=== PATIENT | female | born 1975 | race Two or more races ===

== ENCOUNTER 2023-05-10 11:30 | Inpatient (IN) | payer MEDICAID ==
[~2023-05-10] VITALS: Ht 152.4 cm; Wt 93.4 kg
[2023-05-10] MEDS ORDERED: MORPHINE SULFATE INJ 2 MG/ML DISP.SYRIN IV ONE (12:00)
[2023-05-10] MEDS ORDERED: KETOROLAC TROMETHAMINE INJ 30 MG/ML VIAL IV ONE (12:00)
[2023-05-10] MEDS ORDERED: KETOROLAC TROMETHAMINE 15 MG/ML VIAL ONE (12:36)
[2023-05-10] MEDS ORDERED: MORPHINE SULFATE INJ 4 MG/ML DISP.SYRIN ONE ×2 (12:36→23:21)
[2023-05-10] MEDS ORDERED: ONDANSETRON HCL/PF 4 MG/2 ML VIAL ONE (12:41)
[2023-05-10] MEDS ORDERED: ONDANSETRON HCL/PF - ER 4 MG/2 ML VIAL IV ONE (13:00)
[2023-05-10] MEDS ORDERED: HYDROMORPHONE 1 MG/1 ML DISP.SYRIN IV ONE (13:00)
[2023-05-10] MEDS ORDERED: PROPOFOL 0 ML ONE (13:29)
[2023-05-10] MEDS ORDERED: PROPOFOL 200 MG/20 ML VIAL IV ONE ×3 (13:30→14:00)
[2023-05-10] MEDS ORDERED: PROPOFOL 20 ML IV ONE (13:34)
[2023-05-10 13:35] LABS: BASOPHILS % (AUTO) 0.2 % (0.0-2.0); EOSINOPHILS % (AUTO) 0.1 % (0.0-6.0); HEMATOCRIT 36 % (33-45); LYMPHOCYTES # (AUTO) 0.8 K/uL (0.8-4.8); LYMPHOCYTES % (AUTO) 6.2 % (20.0-44.0); MEAN CORPUSCULAR HEMOGLOBIN 30 PG (26.0-33.0); MEAN CORPUSCULAR HGB CONC 33 g/dl (31.0-36.0); MEAN CORPUSCULAR VOLUME 90 fL (82-100); MONOCYTES # (AUTO) 0.6 K/uL (0.1-1.30); MONOCYTES % (AUTO) 4.3 % (2.0-12.0); NEUTROPHILS % (AUTO) 89.2 % (43.0-81.0); PLATELET COUNT (AUTO) 282 K/uL (150-450); RED BLOOD CELL COUNT(AUTO) 4.02 MIL/uL (4.0-5.2); RED CELL DISTRIBUTION WIDTH 13.2 % (11.5-15.0); WHITE BLOOD COUNT (AUTO) 13.4 K/uL (4.3-11.0)
[2023-05-10 13:52] LABS: CALCIUM, SERUM 8.5 mg/dL (8.5-10.1); CREATININE 0.8 mg/dL (0.6-1.3); POTASSIUM 3.4 mmol/L (3.5-5.1)
[2023-05-10] MEDS ORDERED: IOHEXOL-350 100 ML VIAL IV ONE (14:36)
[2023-05-10] MEDS ORDERED: IV NS 0.9% 250 ML IV ONE (14:36)
[2023-05-10] MEDS ORDERED: TRAM50TA2 PO (15:38)
[2023-05-10] MEDS ORDERED: IBUP-1957 PO (15:38)
[2023-05-10] MEDS ORDERED: HEPARIN INFUSION/D5W 500 ML IV ONE ×2 (17:30→17:47)
[2023-05-10 17:45] LABS: INR 1.02 (0.91-1.10); PARTIAL THROMBOPLASTIN TIME 25.4 SEC (24.3-34.3); PROTHROMBIN TIME 10.8 SECS (9.2-11.1)
[2023-05-10] MEDS ORDERED: BUPIVACAINE 0.5 % PF 150 MG/30 ML VIAL ONE (18:24)
[2023-05-10] MEDS ORDERED: ANESTHESIA TRAY IN PYXIS 1 EA TRAY MC ONE (18:24)
[2023-05-10] MEDS ORDERED: LIDOCAINE 1% INJ 50 ML MDV IJ ONE (18:24)
[2023-05-10] MEDS ORDERED: BUPIVACAINE 0.25% 75 MG/30 ML VIAL ONE (18:24)
[2023-05-10] MEDS ORDERED: HEMOSTATIC MATRIX 8 ML 1 EACH PAD MC ONE (18:24)
[2023-05-10] MEDS ORDERED: CELLULOSE,OXIDIZED 1 EACH EACH MC ONE (18:25)
[2023-05-10] MEDS ORDERED: LIDOCAINE 1%-EPI 1:100,000 20 ML VIAL ONE (18:25)
[2023-05-10] MEDS ORDERED: CELLULOSE,OXIDIZED 1 EA PACK MC ONE (18:25)
[2023-05-10] MEDS ORDERED: LABETALOL HCL IV 100MG VIAL ONE (18:56)
[2023-05-10] MEDS ORDERED: ROCURONIUM BROMIDE 50 MG/5 ML ONE (18:56)
[2023-05-10] MEDS ORDERED: FENTANYL PF 250MCG/5ML AMPUL ONE (18:56)
[2023-05-10] MEDS ORDERED: POLYMYXIN B SULFATE 500,000 UNITS ONE (20:21)
[2023-05-10] MEDS ORDERED: VANCOMYCIN 1 GM VIAL ONE (20:21)
[2023-05-10] MEDS ORDERED: HEPARIN SODIUM, PORCINE 1,000 UNIT/ML VIAL ONE (20:52)
[2023-05-10] MEDS ORDERED: HEPARIN SODIUM, PORCINE 5000 UNITS/1 ML VIAL ONE ×2 (20:52)
[2023-05-10] MEDS ORDERED: HYDROMORPHONE INJ 2 MG/ML DISP.SYRIN ONE (22:20)
[2023-05-10] MEDS ORDERED: HYDROMORPHONE 1 MG/1 ML DISP.SYRIN ONE (22:32)
[2023-05-10] MEDS ORDERED: MEPERIDINE25 MG SYR 25 MG/ML VIAL ONE (22:38)
[2023-05-10 23:24] VITALS: BP 120/79; TEMP 97.7; O2SAT 99
[2023-05-10] MEDS ORDERED: MORPHINE SULFATE INJ 2 MG/ML DISP.SYRIN ONE (23:36)
[2023-05-10] MEDS: FAMOTIDINE/PF INJ 20 MG/2 ML VIAL IV SCH (23:44)
[2023-05-10] MEDS ORDERED: ONDANSETRON HCL/PF 4 MG/2 ML VIAL IVP PRN (23:45)
[2023-05-10] MEDS ORDERED: PHENOL PO PRN (23:45)
[2023-05-10] MEDS ORDERED: MENTHOL PO PRN (23:45)
[2023-05-10] MEDS: IV NS 0.9% 1,000 ML IV PRN (23:46)
[2023-05-10] MEDS: MORPHINE SULFATE/PF 30 MG in IV NS 0.9% 27 ML, PCA TOTAL VOLUME 1 BAG IV PRN ×3 (23:49)
[2023-05-10 23:52] LABS: CALCIUM, SERUM 7.8 mg/dL (8.5-10.1); CREATININE 0.9 mg/dL (0.6-1.3); POTASSIUM 3.6 mmol/L (3.5-5.1)
[2023-05-10 23:54] LABS: BASOPHILS % (AUTO) 0.6 % (0.0-2.0); EOSINOPHILS % (AUTO) 0.1 % (0.0-6.0); HEMATOCRIT 36 % (33-45); LYMPHOCYTES # (AUTO) 0.6 K/uL (0.8-4.8); LYMPHOCYTES % (AUTO) 7.7 % (20.0-44.0); MEAN CORPUSCULAR HEMOGLOBIN 30 PG (26.0-33.0); MEAN CORPUSCULAR HGB CONC 33 g/dl (31.0-36.0); MEAN CORPUSCULAR VOLUME 90 fL (82-100); MONOCYTES # (AUTO) 0.3 K/uL (0.1-1.30); MONOCYTES % (AUTO) 3.3 % (2.0-12.0); NEUTROPHILS # (AUTO) 7.1 K/uL (1.8-8.9); NEUTROPHILS % (AUTO) 88.3 % (43.0-81.0); PLATELET COUNT (AUTO) 253 K/uL (150-450); RED BLOOD CELL COUNT(AUTO) 3.98 MIL/uL (4.0-5.2); RED CELL DISTRIBUTION WIDTH 13.3 % (11.5-15.0)
[2023-05-11] VITALS (12 sets, daily range): BP systolic 100–116; BP diastolic 54–75; TEMP 98–99.9; O2SAT 99–100
[2023-05-11 05:08] LABS: HEMATOCRIT 32 % (33-45); HEMOGLOBIN 10.9 g/dL (11.5-14.8); LYMPHOCYTES # (AUTO) 0.5 K/uL (0.8-4.8); LYMPHOCYTES % (AUTO) 6.1 % (20.0-44.0); MEAN CORPUSCULAR HEMOGLOBIN 31 PG (26.0-33.0); MEAN CORPUSCULAR HGB CONC 34 g/dl (31.0-36.0); MEAN CORPUSCULAR VOLUME 90 fL (82-100); MONOCYTES # (AUTO) 0.5 K/uL (0.1-1.30); MONOCYTES % (AUTO) 6.3 % (2.0-12.0); NEUTROPHILS # (AUTO) 6.8 K/uL (1.8-8.9); NEUTROPHILS % (AUTO) 87.6 % (43.0-81.0); PLATELET COUNT (AUTO) 219 K/uL (150-450); RED BLOOD CELL COUNT(AUTO) 3.54 MIL/uL (4.0-5.2); WHITE BLOOD COUNT (AUTO) 7.8 K/uL (4.3-11.0)
[2023-05-11] MEDS ORDERED: CEFAZOLIN 1 GM ONE (05:19)
[2023-05-11 05:21] LABS: CALCIUM, SERUM 7.8 mg/dL (8.5-10.1); CREATININE 0.7 mg/dL (0.6-1.3); MAGNESIUM 1.9 mg/dL (1.8-2.4); PHOSPHORUS 3.3 mg/dL (2.5-4.9); POTASSIUM 3.6 mmol/L (3.5-5.1)
[2023-05-11] MEDS: ANCEF 1 GM/50 ML D5W IV SCH ×6 (05:29→20:50)
[2023-05-11] MEDS ORDERED: MENTHOL/CETYLPYRD (CEPACOL) 1 LOZ LOZENGE PO PRN (08:00)
[2023-05-11] MEDS: FAMOTIDINE/PF INJ 20 MG/2 ML VIAL IV SCH (09:06)
[2023-05-11] MEDS: ASPIRIN 81 MG TAB.CHEW PO SCH (09:06)
[2023-05-11] MEDS: DOCUSATE SODIUM 100 MG CAPSULE PO SCH ×2 (09:06→17:34)
[2023-05-11] MEDS: MULTIVITAMINS,THERAGRAN 1 UDTAB TABLET PO SCH (09:07)
[2023-05-11] MEDS: ASCORBIC ACID 500 MG TABLET PO SCH ×3 (09:07→17:34)
[2023-05-11] MEDS: ENOXAPARIN SODIUM 40 MG/0.4 ML DISP.SYRIN SQ SCH (09:08)
[2023-05-11] MEDS: IV NS 0.9% 1,000 ML IV PRN (12:54)
[2023-05-11] MEDS: FAMOTIDINE (20 MG) 20 MG TABLET PO SCH (20:46)
[2023-05-11] MEDS ORDERED: KEY,NONCONTROL,TO KEEP IN PYXI 1 EA MC ONE (21:39)
[2023-05-11] MEDS: MORPHINE SULFATE/PF 30 MG in IV NS 0.9% 27 ML, PCA TOTAL VOLUME 1 BAG IV PRN ×3 (21:48)
[2023-05-12] VITALS: BP 117/53; TEMP 99.5; O2SAT 96
[2023-05-12] MEDS: IV NS 0.9% 1,000 ML IV PRN ×3 (03:22→22:34)
[2023-05-12 04:00] VITALS: BP 114/68; TEMP 99.1; O2SAT 99
[2023-05-12 08:00] VITALS: BP 85/50; TEMP 97.6; O2SAT 99
[2023-05-12] MEDS: FAMOTIDINE (20 MG) 20 MG TABLET PO SCH ×2 (08:07→20:26)
[2023-05-12] MEDS: ASPIRIN 81 MG TAB.CHEW PO SCH (08:07)
[2023-05-12] MEDS: ASCORBIC ACID 500 MG TABLET PO SCH ×3 (08:08→16:10)
[2023-05-12] MEDS: MULTIVITAMINS,THERAGRAN 1 UDTAB TABLET PO SCH (08:08)
[2023-05-12] MEDS: DOCUSATE SODIUM 100 MG CAPSULE PO SCH ×2 (08:08→16:10)
[2023-05-12] MEDS: ENOXAPARIN SODIUM 40 MG/0.4 ML DISP.SYRIN SQ SCH (08:11)
[2023-05-12 12:00] VITALS: BP 87/55; TEMP 97.8; O2SAT 99
[2023-05-12 16:03] VITALS: BP 115/62; TEMP 97.9; O2SAT 99
[2023-05-12 20:00] VITALS: BP 106/61; TEMP 99; O2SAT 99
[2023-05-12] MEDS ORDERED: KEY,NONCONTROL,TO KEEP IN PYXI 1 EA MC ONE (21:31)
[2023-05-12] MEDS: MORPHINE SULFATE/PF 30 MG in IV NS 0.9% 27 ML, PCA TOTAL VOLUME 1 BAG IV PRN ×3 (21:34)
[2023-05-13 04:00] VITALS: BP 110/65; TEMP 99.1; O2SAT 92
[2023-05-13] MEDS: ASPIRIN 81 MG TAB.CHEW PO SCH (08:28)
[2023-05-13] MEDS: DOCUSATE SODIUM 100 MG CAPSULE PO SCH ×2 (08:28→16:45)
[2023-05-13] MEDS: FAMOTIDINE (20 MG) 20 MG TABLET PO SCH ×2 (08:29→20:52)
[2023-05-13] MEDS: ASCORBIC ACID 500 MG TABLET PO SCH ×3 (08:29→16:45)
[2023-05-13] MEDS: MULTIVITAMINS,THERAGRAN 1 UDTAB TABLET PO SCH (08:29)
[2023-05-13] MEDS: ENOXAPARIN SODIUM 40 MG/0.4 ML DISP.SYRIN SQ SCH (08:29)
[2023-05-13 12:00] VITALS: BP 112/67; TEMP 98.2; O2SAT 92
[2023-05-13] MEDS ORDERED: KEY,NONCONTROL,TO KEEP IN PYXI 1 EA MC ONE ×2 (15:13→15:24)
[2023-05-13] MEDS ORDERED: MORPHINE SULFATE INJ 4 MG/ML DISP.SYRIN IV PRN (15:30)
[2023-05-13] MEDS: IV NS 0.9% 1,000 ML IV PRN (17:53)
[2023-05-13 20:00] VITALS: BP 112/67; TEMP 99.7; O2SAT 98
[2023-05-14 04:00] VITALS: BP 126/72; TEMP 98.6; O2SAT 98
[2023-05-14] MEDS: DOCUSATE SODIUM 100 MG CAPSULE PO SCH ×2 (08:20→17:15)
[2023-05-14] MEDS: ENOXAPARIN SODIUM 40 MG/0.4 ML DISP.SYRIN SQ SCH (08:21)
[2023-05-14] MEDS: ASPIRIN 81 MG TAB.CHEW PO SCH (08:21)
[2023-05-14] MEDS: MULTIVITAMINS,THERAGRAN 1 UDTAB TABLET PO SCH (08:21)
[2023-05-14] MEDS: FAMOTIDINE (20 MG) 20 MG TABLET PO SCH ×2 (08:21→20:17)
[2023-05-14] MEDS: ASCORBIC ACID 500 MG TABLET PO SCH ×3 (08:21→17:15)
[2023-05-14 12:00] VITALS: BP 116/80; TEMP 98.6; O2SAT 98
[2023-05-14] MEDS: IV NS 0.9% 1,000 ML IV PRN (17:21)
[2023-05-14 20:00] VITALS: BP 106/60; TEMP 98.8; O2SAT 98
[2023-05-15 04:00] VITALS: BP 129/74; TEMP 99.3; O2SAT 98
[2023-05-15] MEDS: MULTIVITAMINS,THERAGRAN 1 UDTAB TABLET PO SCH (08:17)
[2023-05-15] MEDS: FAMOTIDINE (20 MG) 20 MG TABLET PO SCH ×2 (08:17→21:36)
[2023-05-15] MEDS: ASPIRIN 81 MG TAB.CHEW PO SCH (08:17)
[2023-05-15] MEDS: ASCORBIC ACID 500 MG TABLET PO SCH ×3 (08:17→16:51)
[2023-05-15] MEDS: ENOXAPARIN SODIUM 40 MG/0.4 ML DISP.SYRIN SQ SCH (08:17)
[2023-05-15] MEDS: DOCUSATE SODIUM 100 MG CAPSULE PO SCH ×2 (08:18→16:51)
[2023-05-15 12:14] VITALS: BP 127/69; TEMP 97.9; O2SAT 98
[2023-05-15 20:00] VITALS: BP 127/69; TEMP 98.4; O2SAT 98
[2023-05-16 04:00] VITALS: BP 124/76; TEMP 99; O2SAT 96
[2023-05-16] MEDS: IV NS 0.9% 1,000 ML IV PRN ×2 (06:17→19:25)
[2023-05-16 07:11] LABS: BASOPHILS % (AUTO) 0.3 % (0.0-2.0); EOSINOPHILS # (AUTO) 0.1 K/uL (0.0-0.7); EOSINOPHILS % (AUTO) 1.9 % (0.0-6.0); HEMATOCRIT 29 % (33-45); HEMOGLOBIN 9.9 g/dL (11.5-14.8); LYMPHOCYTES % (AUTO) 16.7 % (20.0-44.0); MEAN CORPUSCULAR HEMOGLOBIN 31 PG (26.0-33.0); MEAN CORPUSCULAR HGB CONC 34 g/dl (31.0-36.0); MEAN CORPUSCULAR VOLUME 89 fL (82-100); MONOCYTES # (AUTO) 0.4 K/uL (0.1-1.30); MONOCYTES % (AUTO) 6.9 % (2.0-12.0); NEUTROPHILS # (AUTO) 4.6 K/uL (1.8-8.9); NEUTROPHILS % (AUTO) 74.2 % (43.0-81.0); PLATELET COUNT (AUTO) 307 K/uL (150-450); RED BLOOD CELL COUNT(AUTO) 3.25 MIL/uL (4.0-5.2); RED CELL DISTRIBUTION WIDTH 12.9 % (11.5-15.0); WHITE BLOOD COUNT (AUTO) 6.2 K/uL (4.3-11.0)
[2023-05-16 07:46] LABS: CALCIUM, SERUM 8.6 mg/dL (8.5-10.1); CREATININE 0.6 mg/dL (0.6-1.3); MAGNESIUM 1.9 mg/dL (1.8-2.4); PHOSPHORUS 3.3 mg/dL (2.5-4.9); POTASSIUM 3.1 mmol/L (3.5-5.1)
[2023-05-16] MEDS: ASPIRIN 81 MG TAB.CHEW PO SCH (08:46)
[2023-05-16] MEDS: MULTIVITAMINS,THERAGRAN 1 UDTAB TABLET PO SCH (08:46)
[2023-05-16] MEDS: ENOXAPARIN SODIUM 40 MG/0.4 ML DISP.SYRIN SQ SCH (08:46)
[2023-05-16] MEDS: ASCORBIC ACID 500 MG TABLET PO SCH ×3 (08:46→17:31)
[2023-05-16] MEDS: FAMOTIDINE (20 MG) 20 MG TABLET PO SCH ×2 (08:46→20:22)
[2023-05-16] MEDS: DOCUSATE SODIUM 100 MG CAPSULE PO SCH ×2 (08:46→17:31)
[2023-05-16] MEDS: POTASSIUM CHLORIDE 20 MEQ TAB.PRT.SR PO SCH ×2 (10:06→11:50)
[2023-05-16 16:00] VITALS: BP 105/57; TEMP 99; O2SAT 99
[2023-05-16 20:00] VITALS: BP 109/52; TEMP 98.1; O2SAT 97
[2023-05-17] MEDS: IV NS 0.9% 1,000 ML IV PRN (03:10)
[2023-05-17 04:00] VITALS: BP 112/75; TEMP 98.2; O2SAT 97
[2023-05-17 07:06] LABS: BASOPHILS % (AUTO) 0.4 % (0.0-2.0); EOSINOPHILS # (AUTO) 0.2 K/uL (0.0-0.7); EOSINOPHILS % (AUTO) 2.9 % (0.0-6.0); HEMATOCRIT 31 % (33-45); HEMOGLOBIN 10.5 g/dL (11.5-14.8); LYMPHOCYTES % (AUTO) 19.1 % (20.0-44.0); MEAN CORPUSCULAR HEMOGLOBIN 30 PG (26.0-33.0); MEAN CORPUSCULAR HGB CONC 34 g/dl (31.0-36.0); MEAN CORPUSCULAR VOLUME 89 fL (82-100); MONOCYTES # (AUTO) 0.4 K/uL (0.1-1.30); MONOCYTES % (AUTO) 6.9 % (2.0-12.0); NEUTROPHILS # (AUTO) 3.7 K/uL (1.8-8.9); NEUTROPHILS % (AUTO) 70.7 % (43.0-81.0); PLATELET COUNT (AUTO) 351 K/uL (150-450); RED BLOOD CELL COUNT(AUTO) 3.47 MIL/uL (4.0-5.2); WHITE BLOOD COUNT (AUTO) 5.2 K/uL (4.3-11.0)
[2023-05-17 07:54] LABS: CALCIUM, SERUM 8.9 mg/dL (8.5-10.1); CREATININE 0.6 mg/dL (0.6-1.3); MAGNESIUM 1.9 mg/dL (1.8-2.4); PHOSPHORUS 3.6 mg/dL (2.5-4.9); POTASSIUM 3.4 mmol/L (3.5-5.1)
[2023-05-17] MEDS: MULTIVITAMINS,THERAGRAN 1 UDTAB TABLET PO SCH (09:14)
[2023-05-17] MEDS: ASCORBIC ACID 500 MG TABLET PO SCH ×3 (09:14→17:21)
[2023-05-17] MEDS: FAMOTIDINE (20 MG) 20 MG TABLET PO SCH (09:14)
[2023-05-17] MEDS: ASPIRIN 81 MG TAB.CHEW PO SCH (09:14)
[2023-05-17] MEDS: ENOXAPARIN SODIUM 40 MG/0.4 ML DISP.SYRIN SQ SCH (09:16)
[2023-05-17] MEDS: DOCUSATE SODIUM 100 MG CAPSULE PO SCH ×2 (09:32→17:21)
[2023-05-17] MEDS ORDERED: POTASSIUM CHLORIDE 20 MEQ TAB.PRT.SR PO ONE (11:00)
[2023-05-17] MEDS ORDERED: ASPI-1169 PO ×2 (12:40→15:33)
[2023-05-17 13:13] VITALS: BP 118/58; TEMP 98.2; O2SAT 97
[2023-05-17] MEDS ORDERED: ENOX40DI SQ ×2 (15:02→15:33)
== END 2023-05-17 20:24 | disposition home or self-care (01) | DRG 181 ==
LOC: ER 11:49 → MED 18:53 → ICU 22:24 → TELE1 05-11 10:07 → MEDSG1 05-12 16:24
PROVIDERS: ADMIT Nurse Practitioner Acute Care; ATTEND Student in an Organized Health Care Education/Training Program
PROC: 041M09L Bypass Right Popliteal Artery to Popliteal Artery with Autologous Venous Tissue, Open Approach (ICD-10-PCS; principal; 2023-05-10)
PROC: 0J8L0ZZ Division of Right Upper Leg Subcutaneous Tissue and Fascia, Open Approach (ICD-10-PCS; 2023-05-10)
PROC: 06BQ0ZZ Excision of Left Saphenous Vein, Open Approach (ICD-10-PCS; 2023-05-10)
PROC: 0SSCXZZ Reposition Right Knee Joint, External Approach (ICD-10-PCS; 2023-05-10)
PROC: 05H533Z Insertion of Infusion Device into Right Subclavian Vein, Percutaneous Approach (ICD-10-PCS; 2023-05-11)
PROC: B546ZZA Ultrasonography of Right Subclavian Vein, Guidance (ICD-10-PCS; 2023-05-11)
DX: S85.091A Other specified injury of popliteal artery, right leg, initial encounter (principal); G93.5 Compression of brain; D62 Acute posthemorrhagic anemia; D72.829 Elevated white blood cell count, unspecified; E87.6 Hypokalemia; S82.111A Displaced fracture of right tibial spine, initial encounter for closed fracture; I77.1 Stricture of artery; S83.194A Other dislocation of right knee, initial encounter; W01.0XXA Fall on same level from slipping, tripping and stumbling without subsequent striking against object, initial encounter; Y93.E9 Activity, other interior property and clothing maintenance; Y92.009 Unspecified place in unspecified non-institutional (private) residence as the place of occurrence of the external cause
CPT/HCPCS: 36415; 73560-TC; 73564-TC; 75635-TC; 80048-TC; 83735-TC; 84100-TC; 84702-TC; 85025-TC; 85730-TC; 86850-TC; 97110-TC; 97112-TC; 97530-TC; A4223; A4338; A6209; A6253; C1757; G0378; J0690; J1170; J1644; J1650; J1885; J2175; J2270; J2274; J2405; J2704; J3010; J3370; J3490; J7030; J7050; J7060; Q9967